=== PATIENT | male | born 1965 | race Caucasian/White ===

== ENCOUNTER 2017-02-04 11:56 | Inpatient (IN) | payer MEDICAID ==
[~2017-02-04] VITALS: Ht 165.1 cm; Wt 58.1 kg
[2017-02-04] MEDS ORDERED: LORazepam 2 MG/ML VIAL IM ONE (13:45)
[2017-02-04] MEDS ORDERED: HALOPERIDOL LACTATE 5 MG/ML VIAL IM ONE (13:45)
[2017-02-04 15:04] LABS: BASOPHILS % (AUTO) 0.3 % (0.0-2.0); EOSINOPHILS % (AUTO) 3.4 % (1.0-6.0); HEMOGLOBIN 12.8 g/dL (13.5-17.5); LYMPHOCYTES # (AUTO) 1.5 K/uL (1.0-4.8); LYMPHOCYTES % (AUTO) 20.4 % (22.0-44.0); MEAN CORPUSCULAR HEMOGLOBIN 29.5 pg (26.0-34.0); MEAN CORPUSCULAR HGB CONC 34.6 G/dL (31.0-37.0); MEAN CORPUSCULAR VOLUME 85 fL (80-100); MONOCYTES # (AUTO) 0.4 K/uL (0.1-1.0); MONOCYTES % (AUTO) 5.6 % (2.0-9.0); NEUTROPHILS # (AUTO) 5.3 K/uL (1.8-7.7); NEUTROPHILS % (AUTO) 70.3 % (40.0-70.0); PLATELET COUNT (AUTO) 293 K/uL (150-450); RED BLOOD CELL COUNT(AUTO) 4.35 MIL/uL (4.50-5.90); RED CELL DISTRIBUTION WIDTH 14.4 % (11.5-14.5); WHITE BLOOD COUNT (AUTO) 7.6 K/uL (4.5-11.0)
[2017-02-04 15:21] LABS: ANION GAP 9 mmol/L (8-16); CALCIUM, TOTAL 8.7 mg/dL (8.8-10.5); CARBON DIOXIDE 27 mmol/L (22-29); CHLORIDE 104 mmol/L (98-107); CREATININE 0.96 mg/dL (0.60-1.30); GLOMERULAR FILTR. RATE CALC > 60 mL/min (>60); POTASSIUM 3.7 mmol/L (3.5-5.1); SODIUM SERUM 140 mmol/L (136-145); UREA NITROGEN, BLOOD 12 mg/dL (7-18)
[2017-02-04 15:29] LABS: ALANINE AMINOTRANSFERASE 27 U/L (12-78); ALBUMIN 3.6 g/dL (3.4-5.0); ASPARTATE AMINOTRANSFERASE 26 U/L (15-37); BILIRUBIN,TOTAL 0.4 mg/dL (0.1-1.0); TOTAL PROTEIN, SERUM 7.6 g/dL (6.4-8.2)
[2017-02-04] MEDS ORDERED: ZOLPIDEM TARTRATE 5 MG TABLET PO PRN (19:45)
[2017-02-04] MEDS ORDERED: HALOPERIDOL 5 MG TABLET PO PRN (19:45)
[2017-02-04 20:05] LABS: CHOL/HDL RATIO 2.3 (4.2-7.3)
[2017-02-04 22:18] VITALS: BP 102/77
[2017-02-04] MEDS ORDERED: PNEUMOCOCCAL VACCINE POLYVALENT 0.5 ML VIAL [PPSV23] IM ONE (22:30)
[2017-02-05 06:37] VITALS: BP 109/72
[2017-02-05] MEDS ORDERED: BACITRACIN 28.4 GM OINTMENT TP PRN (09:30)
[2017-02-05] MEDS ORDERED: ONDANSETRON HCL 4 MG TABLET PO PRN (09:30)
[2017-02-05] MEDS ORDERED: PETROLATUM,WHITE 71 GM JELLY TP PRN (09:30)
[2017-02-05] MEDS ORDERED: BENZOCAINE/MENTHOL LOZENGE MM PRN (09:30)
[2017-02-05] MEDS ORDERED: IBUPROFEN 600 MG TABLET PO PRN (09:30)
[2017-02-05] MEDS ORDERED: ALBUTEROL SULFATE HFA 90 MCG/PUFF 8 GM INHALER IH PRN (09:30)
[2017-02-05] MEDS ORDERED: ACETAMINOPHEN 325 MG TABLET PO PRN (09:30)
[2017-02-05] MEDS ORDERED: MAGNESIUM HYDROXIDE SUSPENSION 30 ML UDCUP PO PRN (09:30)
[2017-02-05] MEDS ORDERED: CloNIDine HCL 0.1 MG TABLET PO PRN (09:30)
[2017-02-05 16:00] VITALS: BP 116/78
[2017-02-05] MEDS: LORazepam 2 MG TABLET PO PRN (17:14)
[2017-02-06 06:14] VITALS: BP 114/76
[2017-02-06 07:50] LABS: HEMOGLOBIN A1C 6.5 % (4.5-6.2)
[2017-02-06 08:17] LABS: THYROID STIMULATING HORMONE 0.88 uIU/mL (0.36-3.74)
[2017-02-06] MEDS: RisperiDONE 0.5 MG TABLET PO SCH ×2 (09:25→16:37)
[2017-02-06] MEDS: LORazepam 2 MG TABLET PO PRN ×2 (09:25→16:38)
[2017-02-06 16:00] VITALS: BP 120/68
[2017-02-07 06:52] VITALS: BP 120/87
[2017-02-07 08:39] VITALS: BP 112/64
[2017-02-07] MEDS: RisperiDONE 0.5 MG TABLET PO SCH ×2 (08:49→16:10)
[2017-02-07] MEDS: LORazepam 2 MG TABLET PO PRN ×2 (08:50→16:10)
[2017-02-07 16:00] VITALS: BP 130/84
[2017-02-07] MEDS ORDERED: HALOPERIDOL LACTATE 5 MG/ML VIAL ONE (18:03)
[2017-02-07] MEDS ORDERED: LORazepam 2 MG/ML VIAL ONE (18:03)
[2017-02-07] MEDS ORDERED: DiphenhydrAMINE HCL 50 MG/ML VIAL ONE (18:03)
[2017-02-07] MEDS ORDERED: HALOPERIDOL LACTATE 5 MG/ML VIAL IM ONE (18:15)
[2017-02-07] MEDS ORDERED: DiphenhydrAMINE HCL 50 MG/ML VIAL IM ONE (18:15)
[2017-02-07] MEDS ORDERED: LORazepam 2 MG/ML VIAL IM ONE (18:15)
[2017-02-08 06:02] VITALS: BP 119/74
[2017-02-08] MEDS: OLANZapine 5 MG RAPDIS TABLET PO SCH ×2 (09:00→16:57)
[2017-02-08 09:37] VITALS: BP 110/75
[2017-02-08 16:26] VITALS: BP 120/63
[2017-02-09] MEDS: OLANZapine 5 MG RAPDIS TABLET PO SCH ×2 (08:52→16:36)
[2017-02-09] MEDS: MAG HYDROX/AL HYDROX/SIMETH ES 30 ML SUSPENSION UDCUP PO PRN ×2 (13:13→21:19)
[2017-02-09 16:04] VITALS: BP 110/84
[2017-02-10 01:49] VITALS: BP 117/83
[2017-02-10 08:03] VITALS: BP 112/70
[2017-02-10] MEDS: OLANZapine 5 MG RAPDIS TABLET PO SCH (08:37)
[2017-02-10] MEDS: MAG HYDROX/AL HYDROX/SIMETH ES 30 ML SUSPENSION UDCUP PO PRN ×2 (14:46→20:46)
[2017-02-10] MEDS: OLANZapine 10 MG RAPDIS TABLET PO SCH (16:33)
[2017-02-10 16:37] VITALS: BP 125/84
[2017-02-10] MEDS: ZOLPIDEM TARTRATE 10 MG TABLET PO PRN (21:49)
[2017-02-11 06:40] VITALS: BP 111/68
[2017-02-11] MEDS: LOPERAMIDE HCL 2 MG CAPSULE PO PRN (08:50)
[2017-02-11] MEDS: OLANZapine 10 MG RAPDIS TABLET PO SCH ×2 (08:50→16:08)
[2017-02-11] MEDS: MAG HYDROX/AL HYDROX/SIMETH ES 30 ML SUSPENSION UDCUP PO PRN (12:30)
[2017-02-11 16:00] VITALS: BP 118/69
[2017-02-12] MEDS: MAG HYDROX/AL HYDROX/SIMETH ES 30 ML SUSPENSION UDCUP PO PRN ×2 (03:51→20:38)
[2017-02-12 06:24] VITALS: BP 103/71
[2017-02-12] MEDS: OLANZapine 10 MG RAPDIS TABLET PO SCH ×2 (08:12→16:03)
[2017-02-12 08:29] VITALS: BP 102/75
[2017-02-12] MEDS: LOPERAMIDE HCL 2 MG CAPSULE PO PRN (14:24)
[2017-02-12 16:20] VITALS: BP 102/61
[2017-02-12] MEDS: ZOLPIDEM TARTRATE 10 MG TABLET PO PRN (21:04)
[2017-02-13] MEDS: MAG HYDROX/AL HYDROX/SIMETH ES 30 ML SUSPENSION UDCUP PO PRN ×2 (06:50→16:55)
[2017-02-13 08:15] VITALS: BP 109/75
[2017-02-13 08:44] LABS: ALANINE AMINOTRANSFERASE 29 U/L (12-78); ALBUMIN 3.8 g/dL (3.4-5.0); ANION GAP 6 mmol/L (8-16); ASPARTATE AMINOTRANSFERASE 21 U/L (15-37); BILIRUBIN,TOTAL 0.2 mg/dL (0.1-1.0); CARBON DIOXIDE 32 mmol/L (22-29); CHLORIDE 96 mmol/L (98-107); CREATININE 1.03 mg/dL (0.60-1.30); GLOMERULAR FILTR. RATE CALC > 60 mL/min (>60); POTASSIUM 4.1 mmol/L (3.5-5.1); SODIUM SERUM 134 mmol/L (136-145); TOTAL PROTEIN, SERUM 8.1 g/dL (6.4-8.2); UREA NITROGEN, BLOOD 17 mg/dL (7-18)
[2017-02-13] MEDS: OLANZapine 10 MG RAPDIS TABLET PO SCH ×2 (09:00→16:55)
[2017-02-13] MEDS: MULTIVITAMINS WITH MINERALS, THERAPEUTIC TABLET PO SCH ×4 (09:30→12:54)
[2017-02-13] MEDS ORDERED: OLAN10TA6 PO (14:29)
[2017-02-13] MEDS ORDERED: MULT-248 PO (14:29)
[2017-02-13 16:10] VITALS: BP 139/73
[2017-02-13] MEDS: ZOLPIDEM TARTRATE 10 MG TABLET PO PRN (21:26)
[2017-02-14 05:36] VITALS: BP 124/68
[2017-02-14 08:45] VITALS: BP 132/91
[2017-02-14] MEDS: OLANZapine 10 MG RAPDIS TABLET PO SCH (09:29)
[2017-02-14] MEDS: MULTIVITAMINS WITH MINERALS, THERAPEUTIC TABLET PO SCH (09:29)
[2017-02-14 13:24] LABS: HEPATITIS Bs ANTIGEN SCREEN P Negative (Negative); HEPATITIS C AB SCREEN <0.1 s/co ratio (0.0-0.9)
== END 2017-02-14 12:30 | disposition home or self-care (01) | DRG 751 ==
LOC: EMS 11:58 → B3A 19:30
PROVIDERS: ADMIT Psychiatry & Neurology Psychiatry; ATTEND Psychiatry & Neurology Psychiatry
DX: F29 Unspecified psychosis not due to a substance or known physiological condition (principal); F15.20 Other stimulant dependence, uncomplicated; E55.9 Vitamin D deficiency, unspecified; F10.10 Alcohol abuse, uncomplicated; Y90.0 Blood alcohol level of less than 20 mg/100 ml; F12.90 Cannabis use, unspecified, uncomplicated; R73.9 Hyperglycemia, unspecified; G47.00 Insomnia, unspecified; Z91.14 Patient's other noncompliance with medication regimen
CPT/HCPCS: 80074; 82306; 83036; 84443; 90471; 96372; 99285; G0480; J1200; J1630; J2060; Q0162